=== PATIENT | female | born 1980 | race Caucasian/White ===

== ENCOUNTER → 2017-09-24 | Outpatient (CLI) | payer BC ==
--- NOTE | 2017-09-24 11:20 | ECHOF ---
Referral Reason:I10 hypertention, R94.31 EKG abnormal MEASUREMENTS -------- HEIGHT: 160.0 cm WEIGHT: 63.5 kg BP: RVIDd: 2.2 cm (< 3.3) IVSd: 0.8 cm (0.6 - 1.1) LVIDd: 3.9 cm (3.9 - 5.3) LVPWd: 0.8 cm (0.6 - 1.1) IVSs: 1.1 cm LVIDs: 2.8 cm LVPWs: 1.1 cm LAESV Index (A-L): 14.75 ml/m Ao Diam: 2.8 cm (2.0 - 3.7) AV Cusp: 1.7 cm (1.5 - 2.6) LA Diam: 2.5 cm (2.7 - 3.8) MV EXCURSION: 9.870 mm (> 18.000) MV EF SLOPE: 81 mm/s (70 - 150) EPSS: 0.4 cm MV E Adam: 0.66 m/s MV DecT: 194 ms MV A Adam: 0.80 m/s MV E/A Ratio: 0.82 RAP: 5.00 mmHg RVSP: 19.22 mmHg FINDINGS -------- Sinus rhythm. This was a technically good study. The left ventricular size is normal. Left ventricular wall thickness is normal. Overall left vent ricular systolic function is low-normal with, an EF between 50 - 55 %. The right ventricle is normal in size and function. Normal LA size by volume 22+/-6 ml/m2. The right atrium is normal in size. The aortic valve is trileaflet, and appears structurally normal. No aortic stenosis or regurgitation. The mitral valve leaflets are mildly thickened. There is trace mitral regurgitation. Trace tricuspid regurgitation present. Right ventricular systolic pressure is normal at < 35 mmHg. There is no evidence of pulmonary hypertension. The pulmonic valve is normal. The aortic root size is normal. Normal inferior vena cava with normal inspiratory collapse consistent with estimated right atrial pre ssure of 5 mmHg. The pericardium is normal. There is no pericardial effusion. CONCLUSIONS -------- 1. Sinus rhythm. 2. This was a technically good study. 3. The left ventricular size is normal. 4. Left ventricular wall thickness is normal. 5. Overall left ventricular systolic function is low-normal with, an EF between 50 - 55 %. 6. Normal LA size by volume 22+/-6 ml/m2. 7. The aortic valve is trileaflet, and appears structurally normal. No aortic stenosis or regurgitati on. 8. The mitral valve leaflets are mildly thickened. 9. There is trace mitral regurgitation. 10. Trace tricuspid regurgitation present. 11. Right ventricular systolic pressure is normal at < 35 mmHg. 12. There is no evidence of pulmonary hypertension. 13. The aortic root size is normal. 14. There is no pericardial effusion. DEVELOPMENT CONSULTANT: Kam Sands RDCS
--- NOTE | 2017-09-24 12:13 | ECHOS ---
STRESS ECHOCARDIOGRAM INDICATIONS: Abnormal EKG, chest pain. MEDICATIONS: Lisinopril, Crestor, Cymbalta, fish oil. BASELINE HEART RATE: 90 BASELINE BLOOD PRESSURE: 122/78 MAXIMUM HEART RATE: 147 MAXIMUM BLOOD PRESSURE: 162/74 85% MPHR: 154 100% MPHR: 181 METS: 12.1 MAXIMUM STAGE REACHED: III TOTAL EXERCISE TIME: 11:05 CLINICAL INFORMATION: A stress echocardiographic study was performed. Patient was exercised for a total period of 11 minutes, peak heart rate of 147 was achieved. Maximum blood pressure 162/74 mmHg was noted. Resting EKG shows a normal sinus rhythm with normal DE interval and QRS duration and normal ST-T waves. No ST-segment depression suggestive of ischemia was noted. The baseline echocardiographic images reveal normal left ventricular chamber size with normal left ventricular systolic function. In the immediate post exercise period, normal increase in the wall thickness and contractility is noted. FINAL IMPRESSION: 1. This stress echocardiographic study is negative for stress-induced ischemia. 2. EKG portion of the stress test is not suggestive of ischemia. 3. Patient's exercise tolerance is normal. MMODL / IJN: [id number] /
== END | disposition home or self-care (01) ==
LOC: RADNMMAIN 09:53
PROVIDERS: ATTEND Family Medicine
DX: I10 Essential (primary) hypertension (principal); R94.31 Abnormal electrocardiogram [ECG] [EKG]
CPT/HCPCS: 93017; 93306; 93350

== ENCOUNTER → 2018-10-06 | Outpatient (CLI) | payer BC ==
--- NOTE | 2018-10-07 11:11 | MM ---
Reason for exam: screening (asymptomatic). Last mammogram was performed 4 years and 7 months ago. History: Family history of breast cancer in maternal aunt. Took hormonal contraceptives for 18 years. Physical Findings: A clinical breast exam by your physician is recommended on an annual basis and results should be correlated with mammographic findings. MG Screening Mammo w CAD Bilateral CC and MLO view(s) were taken. Prior study comparison: March 14, 2014, bilateral MG screening mammo w CAD. The breast tissue is heterogeneously dense. This may lower the sensitivity of mammography. No suspicious abnormality. No significant changes when compared with prior studies. ASSESSMENT: Negative, BI-RAD 1 RECOMMENDATION: Routine screening mammogram of both breasts in 1 year.
== END | disposition home or self-care (01) ==
LOC: RADMAMWWP 14:53
PROVIDERS: ATTEND Obstetrics & Gynecology
DX: Z12.31 Encounter for screening mammogram for malignant neoplasm of breast (principal)
CPT/HCPCS: 77067

== ENCOUNTER → 2019-06-29 | Outpatient (CLI) | payer BC | END | disposition home or self-care (01) | LOC: PROCWHC3 10:07 | PROVIDERS: ATTEND Family Medicine | DX: B34.9 Viral infection, unspecified (principal) | CPT/HCPCS: 87502 ==

== ENCOUNTER → 2020-08-22 | Outpatient (CLI) | payer BC ==
--- NOTE | 2020-08-23 14:09 | MM ---
Reason for exam: screening (asymptomatic). Last mammogram was performed 1 year and 10 months ago. History: Family history of breast cancer in maternal aunt. Took hormonal contraceptives for 18 years. Physical Findings: A clinical breast exam by your physician is recommended on an annual basis and results should be correlated with mammographic findings. MG 3D Screening Mammo W/Cad Bilateral CC and MLO view(s) were taken. Prior study comparison: October 06, 2018, bilateral MG screening mammo w CAD. March 14, 2014, bilateral MG screening mammo w CAD. The breast tissue is heterogeneously dense. This may lower the sensitivity of mammography. There is no discrete abnormality. No significant changes when compared with prior studies. ASSESSMENT: Negative, BI-RAD 1 RECOMMENDATION: Routine screening mammogram of both breasts in 1 year.
== END | disposition home or self-care (01) ==
LOC: RADMAMWWP 10:10
PROVIDERS: ATTEND Obstetrics & Gynecology
DX: Z12.31 Encounter for screening mammogram for malignant neoplasm of breast (principal)
CPT/HCPCS: 77063; 77067

== ENCOUNTER → 2024-10-16 | Outpatient (CLI) | payer BC ==
--- NOTE | 2024-10-17 08:14 | MM ---
Reason for Exam: Screening (asymptomatic). Last mammogram was performed 4 year(s) and 2 month(s) ago. Patient History: Menarche at age 9. First Full-Term at age 27. Patient has history of breast feeding. Patient used Hormonal Contraceptives for 18 years. Maternal aunt had breast cancer. Last menstrual period: 09/30/2024 Risk Values: Nikole 5 year model risk: 1.0%. NCI Lifetime model risk: 11.4%. Prior Study Comparison: 03/14/2014 Bilateral Screening Mammogram, [facility]. 10/06/2018 Bilateral Screening Mammogram, [facility]. 08/22/2020 Bilateral Screening Mammogram, [facility]. Tissue Density: The breasts are extremely dense, which lowers the sensitivity of mammography. Findings: Analyzed By CAD. There is no suspicious group of microcalcifications or new suspicious mass in either breast. Stable chronic nodularity from multiple prior exams upper outer quadrant left breast. Overall Assessment: Benign, BI-RAD 2 Management: Screening Mammogram of both breasts in 1 year. . Patient should continue monthly self-breast exams. A clinical breast exam by your physician is recommended on an annual basis. This exam should not preclude additional follow-up of suspicious palpable abnormalities. Note on Nikole scores and lifetime risk: 1. A Nikole score greater than 3% is considered moderate risk. If this is the case, consider specialist referral to assess eligibility for a risk reducing agent. 2. If overall lifetime risk for the development of breast cancer is 20% or higher, the patient may qualify for future screening with alternating mammogram and breast MRI. [facility], , 10/17/2024 8:11 AM. Electronically signed and approved by: Rual Pulliam M.D. [facility]iolog[facility]
== END | disposition home or self-care (01) ==
LOC: RADMAMWWP 16:22
PROVIDERS: ATTEND Obstetrics & Gynecology
DX: Z12.31 Encounter for screening mammogram for malignant neoplasm of breast (principal); R92.343 Mammographic extreme density, bilateral breasts; Z92.0 Personal history of contraception; Z80.3 Family history of malignant neoplasm of breast
CPT/HCPCS: 77063; 77067